=== PATIENT | female | born 1965 ===

== ENCOUNTER 2021-02-01 18:13 | Emergency (ER) | payer SELFPAY ==
[~2021-02-01] VITALS: Ht 162.6 cm; Wt 94.8 kg
--- NOTE | 2021-02-01 18:25 | NUR ---
Dr Odom at the bedside for MSE.
[2021-02-01] MEDS ORDERED: BUPR-96 PO (18:31)
[2021-02-01] MEDS ORDERED: VENL75TA4 PO (18:31)
[2021-02-01 19:08] LABS: HEMATOCRIT 43.9 % (31.2-41.9); MEAN CORPUSCULAR HEMOGLOBIN 28.6 uug (24.7-32.8); MEAN CORPUSCULAR VOLUME 87.1 fL (75.5-95.3); PLATELET COUNT (AUTO) 277 K/uL (179-408)
[2021-02-01 19:14] LABS: *BILIRUBIN,URIN NEGATIVE (NEGATIVE); *BLOOD, URINE NEGATIVE (NEGATIVE); *CLARITY,URINE CLEAR (CLEAR); *COLOR,URINE YELLOW (YELLOW); *KETONES,URINE 2+ (NEGATIVE); *URINE HCG, QUAL NEGATIVE (NEGATIVE); *UROBILINOGEN,URINE 0.2 E.U./dl (NORMAL); LEUKOCYTE ESTERASE ,URINE TRACE (NEGATIVE); NITRITE, URINE NEGATIVE (NEGATIVE); PH,URINE 5.5 (5.0-8.0); UGLUCOSE NEGATIVE (NEGATIVE)
[2021-02-01] MEDS ORDERED: IV NORMAL SALINE 1000 ML BAG IV ONE (19:15)
[2021-02-01 19:16] LABS: CARBON DIOXIDE 23 mmol/L (21-32); CHLORIDE 104 mmol/L (98-107); CREATININE 0.7 mg/dL (0.6-1.3); GLUCOSE 128 mg/dL (74-106); POTASSIUM 3.9 mmol/L (3.5-5.1); UREA NITROGEN, BLOOD 12 mg/dL (7-18)
[2021-02-01 19:18] LABS: ETHANOL 145 MG/DL (0-0)
[2021-02-01 19:19] LABS: BACTERIA,URINE FEW /HPF (NONE SEEN); MUCUS,URINE FEW /LPF (0-FEW); SQUAMOUS EPITHELIAL CELL,UR FEW /HPF (NONE SEEN); URINE AMORPHOUS URATE FEW /HPF
--- NOTE | 2021-02-01 19:20 | NUR ---
Patient requested a blanket and water. OK per MD Haresh Odom. Patient is now resting comfortably in bed with eyes closed, no acute distress is noted at this time.
[2021-02-01 19:22] LABS: ALANINE AMINOTRANSFERASE 92 U/L (14-59); ALKALINE PHOSPHATASE 131 U/L (50-136); ASPARTATE AMINOTRANSFERASE 43 U/L (15-37); BILIRUBIN,DIRECT 0.1 mg/dL (0.0-0.2); BILIRUBIN,TOTAL 0.1 mg/dL (0.2-1.0); TOTAL PROTEIN, SERUM 7.4 g/dL (6.4-8.2)
[2021-02-01 19:23] LABS: ACETAMINOPHEN < 2.0 ug/mL (10-30)
[2021-02-01 19:25] LABS: *AMPHETAMINE, URINE NEGATIVE (NEGATIVE); *CANNABINOID, URINE NEGATIVE (NEGATIVE); *COCCAINE, URINE NEGATIVE (NEGATIVE); *OPIATE, URINE NEGATIVE (NEGATIVE); *PHENCYCLIDINE SCREEN,URINE NEGATIVE (NEGATIVE)
[2021-02-01 19:30] LABS: THYROID STIMULATING HORMONE 1.455 mIU/mL (0.358-3.740)
[2021-02-01] MEDS ORDERED: IV LACTATED RINGERS SOLUTION 1,000 ML IV ONE (20:00)
--- NOTE | 2021-02-01 20:27 | NUR ---
Patient stated she was bored and requested entertainment. Patient was provided a television to watch.
--- NOTE | 2021-02-01 22:45 | NUR ---
Called Art from crisis team to evaluate the pt. His estimated time of arrival is 60 min.
--- NOTE | 2021-02-01 23:15 | NUR ---
Art at bedside to evaluate pt.
--- NOTE | 2021-02-02 00:04 | NUR ---
Patient discharged to home in stable condition. Written and verbal after care instructions given. Patient verbalizes understanding of instructions. Stressed follow up or return to ER for worsening s/s. IV removed. All belongings with pt. Pt walks with steady gait and shows no signs of distress. Vss.
[2021-02-02 00:06] VITALS: BP 122/76
== END 2021-02-02 00:06 | disposition home or self-care (01) ==
LOC: ER 18:13
DX: F10.129 Alcohol abuse with intoxication, unspecified (principal); F13.90 Sedative, hypnotic, or anxiolytic use, unspecified, uncomplicated; Y90.6 Blood alcohol level of 120-199 mg/100 ml; F32.9 Major depressive disorder, single episode, unspecified; G47.9 Sleep disorder, unspecified; Z85.3 Personal history of malignant neoplasm of breast; F41.9 Anxiety disorder, unspecified; Z79.899 Other long term (current) drug therapy; Z20.822 Contact with and (suspected) exposure to COVID-19
CPT/HCPCS: 36415; 80048; 80076; 80299; 80307; 80320 ×2; 81001; 83735; 84443; 84703; 85025; 87086; 87426; 93005; 96360; 99285; J7120; A4663; G0480; J7030